=== PATIENT | female | born 1990 | race Caucasian/White ===

== ENCOUNTER → 2019-01-18 | Outpatient (CLI) | payer BC, OTHER ==
--- NOTE | 2019-01-18 15:48 | Diagnostic Imaging Report ---
INDICATION: survey. TECHNIQUE: Multiple real-time grayscale images were obtained over the gravid uterus. COMPARISON: None. FINDINGS: There is a single live fetus in a cephalic presentation. heart rate was recorded at 156 beats per minute. Placenta is fundal. Amniotic fluid volume is normal. survey demonstrates kidneys, bladder, and stomach to be unremarkable. The brain is unremarkable. There is a four-chamber heart. There is a three-vessel cord with normal insertion. The spine is unremarkable. Biometrical measurements are as follows: Biparietal 5.08 cm, age 21 weeks 3 days. Head circumference 18.84 cm, age 21 weeks 1 days. Abdominal circumference 15.18 cm, age 20 weeks 3 days. Femur length 3.32 cm, age 20 weeks 3 days. Sonographic estimate age: 20 weeks 6 days. Sonographic estimated date of delivery: 06/01/2019. Estimated Weight: 358 gm (+/- 52 gm). LMP percentile: 41%. heart rate: 156 beats per minute. number: 1 of 1. IMPRESSION: Single live IUP at 20 weeks 6 days gestational age. The estimated date of confinement sonographically is 06/01/2019. Dictated by: Dictated on workstation # [id number]
== END ==
LOC: RAD 14:38
PROVIDERS: ATTEND Obstetrics & Gynecology
DX: Z36.89 Encounter for other specified antenatal screening (principal); Z3A.20 20 weeks gestation of pregnancy
CPT/HCPCS: 76805

== ENCOUNTER 2019-05-15 10:10 | Inpatient (IN) | payer OTHER ==
[~2019-05-15] VITALS: Ht 167.6 cm; Wt 65.8 kg
[2019-05-15] VITALS (41 sets, daily range): BP systolic 111–132; BP diastolic 67–86
--- NOTE | 2019-05-15 10:10 | NUR ---
Arrived to unit from office for induction of labor. Accompanied by s.o. Wt obtained and to room 316. Gowned and urine sample obtained. to bed and oriented to room, call light and surroundings. Call light with in reach.
[2019-05-15] MEDS: D5 LR IV SOLUTION 1,000 ML IV SCH ×2 (11:49→19:51)
[2019-05-15 12:32] LABS: BASOPHILS % (AUTO) 0 % (0-10); EOSINOPHILS % (AUTO) 1 % (0-10); HEMATOCRIT 36 % (35-52); HEMOGLOBIN 12.5 G/DL (11.5-16.0); LYMPHOCYTES # (AUTO) 1.3 X 10^3 (1.0-4.0); LYMPHOCYTES % (AUTO) 19 % (12-44); MEAN CORPUSCULAR HEMOGLOBIN 30 PG (25-34); MEAN CORPUSCULAR HGB CONC 35 G/DL (32-36); MEAN CORPUSCULAR VOLUME 88 FL (80-99); MEAN PLATELET VOLUME 10.5 FL (7.4-10.4); MONOCYTES # (AUTO) 0.6 X 10^3 (0.0-1.0); MONOCYTES % (AUTO) 8 % (0-12); NEUTROPHILS # (AUTO) 5.2 X 10^3 (1.8-7.8); NEUTROPHILS % (AUTO) 73 % (42-75); PLATELET COUNT 199 10^3/uL (130-400); RED CELL DISTRIBUTION WIDTH 12.6 % (10.0-14.5); WHITE BLOOD COUNT 7.1 10^3/uL (4.3-11.0)
--- NOTE | 2019-05-15 13:02 | History & Physical-OB ---
OB - Chief Complaint & HPI Date/Time Date of Admission: Date of Admission: May 15, 2019 at 10:10 Date seen by a Provider: May 15, 2019 Time Seen by a Provider: 10:30 Chief Complaint/History OB-Reason for Admission/Chief: Onset of Labor Hx : 2 Hx Para: 1 Expected Date of Delivery: Jun 03, 2019 Gestational Age in Weeks: 37 Gestational Age in Days: 2 Indication for induction: other (Oligohydramnios, IUGR) Admission Nurse Assessment Rev: Yes History of Labs A pos Antibody neg RI RPR NR HBsAg NR HIV NR GC neg GBS neg Allergies and Home Medications Allergies Coded Allergies: Sulfa (Sulfonamide Antibiotics) (Verified Allergy, Unknown, Rash, 05/15/19) Patient Home Medication List Home Medication List Reviewed: Yes OB - History Hx of Present Care: Yes Ultrasounds: Normal mid trimester US Obstetrical Complications: None Medical Complications: None Patient Past Medical History n/a Social History/Family History Alcohol Use: Denies Use Recreational Drug Use: No Immunizations Hepatitis A: No Hepatitis B: No OB - Admission Exam Physical Exam HEENT: NCAT Heart: Rhythm Normal Lungs: Clear Abdomen: Gravid Extremities: Normal Reflexes: Normal Cervical Dilatation: 3cm Effacement: 75% Station: -1 Membranes: Intact Heart Rate: 130's Accelerations: Accelerations Present Decelerations: No Decelerations Short Term Variability: Present Loaders Variability: Average (6-25) Contractions on Admission: 6-10 Minutes Apart Labs Laboratory Tests Test 05/15/19 11:40 Range/Units White Blood Count 7.1 4.3-11.0 10^3/uL Red Blood Count 4.11 L 4.35-5.85 10^6/uL Hemoglobin 12.5 11.5-16.0 G/DL Hematocrit 36 35-52 % Mean Corpuscular Volume 88 80-99 FL Mean Corpuscular Hemoglobin 30 25-34 PG Mean Corpuscular Hemoglobin Concent 35 32-36 G/DL Red Cell Distribution Width 12.6 10.0-14.5 % Platelet Count 199 130-400 10^3/uL Mean Platelet Volume 10.5 H 7.4-10.4 FL Neutrophils (%) (Auto) 73 42-75 % Lymphocytes (%) (Auto) 19 12-44 % Monocytes (%) (Auto) 8 0-12 % Eosinophils (%) (Auto) 1 0-10 % Basophils (%) (Auto) 0 0-10 % Neutrophils # (Auto) 5.2 1.8-7.8 X 10^3 Lymphocytes # (Auto) 1.3 1.0-4.0 X 10^3 Monocytes # (Auto) 0.6 0.0-1.0 X 10^3 Eosinophils # (Auto) 0.0 0.0-0.3 10^3/uL Basophils # (Auto) 0.0 0.0-0.1 10^3/uL OB - Assessment/Plan/Diagnosis Assessment Assessment: induction of labor Admission Dx 29 yo @ 37 weeks Oligohydramnios IUGR <10th %tile GBS neg Admission Status: Inpatient Order (span 2 midnights) Reason for Inpatient Admission: Induction of labor at term Plan Plan: Induction Induction Method: JEY MIRZA DO May 15, 2019 13:02
--- NOTE | 2019-05-15 13:15 | NUR ---
Report to Raheem Washburn RN
[2019-05-15] MEDS ORDERED: CATHETER FLUSH 10 ML SYR IV SCH (14:00)
[2019-05-15] MEDS ORDERED: ACETAMINOPHEN 500 MG TAB (TYLENOL) PO PRN (14:15)
[2019-05-15] MEDS ORDERED: OXYTOCIN/NORMAL SALINE 500 ML IV SCH (16:18)
[2019-05-15] MEDS ORDERED: OXYTOCIN/NORMAL SALINE 500 ML IV ONE (16:24)
[2019-05-15] MEDS ORDERED: ONDANSETRON 4 MG/2 ML (SDV) Z0FRAN ONE (19:26)
[2019-05-15] MEDS ORDERED: ONDANSETRON 4 MG/2 ML (SDV) Z0FRAN IVP PRN (19:30)
[2019-05-15] MEDS ORDERED: LACTATED RINGERS 1,000 ML IV ONE ×3 (20:00→21:43)
[2019-05-15] MEDS ORDERED: SUFENTA 0.6MCG/ML BUPIVA 0.125 100 ML ONE (20:20)
[2019-05-15] MEDS ORDERED: BUPIVACAINE 0.25% 30 ML (SENSORCAINE) VIAL ONE (21:03)
[2019-05-15] MEDS ORDERED: fentaNYL INJECTION 100 MCG/2 ML AMP ONE (21:04)
--- NOTE | 2019-05-15 21:05 | NUR ---
2104 Kayla GIANG CRNA here for epidural placement. Procedure explained, consent reviewed and signed by anesthesia. Questions answered to patient's satisfaction. Time out taken to verify correct patient/procedure. 2108 Patient up to side of bed, assisted into sitting position. 2 Betadine prep done x3 and sterile drape applied. 2113 Local done, see anesthesia record. 2119 Test dose given, see anesthesia record for drug and dosage. Epidural catheter secured in place. Epidural placement complete. 2122 Assisted back into bed, monitors adjusted. Epidural dosed, see anesthesia record. Epidural of Sufenta/Bupvicaine @12cc/hr stated per pump. Patient tolerated procedure well.
[2019-05-15] MEDS ORDERED: ONDANSETRON 4 MG/2 ML (SDV) Z0FRAN IV PRN (21:45)
[2019-05-15] MEDS ORDERED: EPIDURAL (SUFENTA 0.6MCG/ML BUPIVA 0.125%) 100 ML BAG EPI PRN (21:45)
[2019-05-15] MEDS ORDERED: NALOXONE 0.4 MG/ML 1 ML (NARCAN) VIAL IV PRN (21:45)
[2019-05-16] VITALS (22 sets, daily range): BP systolic 99–157; BP diastolic 57–114
[2019-05-16] MEDS ORDERED: LIDOCAINE/EPI 2% 1:200,00 (XYLOCAINE) 10 ML VIAL ONE (01:42)
[2019-05-16] MEDS ORDERED: OXYTOCIN/NORMAL SALINE 500 ML IV SCH (02:39)
--- NOTE | 2019-05-16 02:44 | OB Labor & Delivery Record ---
L&D History Date of Service Date of Service: May 16, 2019 History Expected Date of Delivery: Jun 03, 2019 Gestational Age in Weeks: 37 Hx : 2 Hx Para: 1 Complications Events: Routine care Operative Indications (Cesarea: N/A-Vaginal Delivery Intrapartal Events: None L&D Stage1 Stage One Onset of Labor - Date: May 16, 2019 Monitors and Tracing Monitor Mode: External Heart Rate: 125 Monitor Accelerations: Uniform Station: 0 Cathode Ray Tube Assembler Variability: Average (6-10) Short Term Variability: Present Presentation: Vertex Vital Signs VS - Last 72 Hours, by Label 05/15/19 05/15/19 05/15/19 05/15/19 10:30 12:55 14:52 16:15 Temp 97.0 96.9 96.9 96.9 Pulse 74 82 69 81 Resp 18 18 18 18 B/P (MAP) 127/84 (98) 132/80 (97) 122/71 (88) 124/80 (95) O2 Delivery Room Air Room Air Room Air Room Air 05/15/19 05/15/19 05/15/19 05/15/19 16:35 16:50 17:05 17:20 Pulse 82 74 72 82 Resp 18 18 18 18 B/P (MAP) 117/79 (92) 121/75 (90) 117/76 (90) 122/78 (93) O2 Delivery Room Air Room Air Room Air Room Air 05/15/19 05/15/19 05/15/19 05/15/19 17:35 17:50 18:20 18:35 Temp 96.4 Pulse 84 78 87 83 Resp 18 18 18 18 B/P (MAP) 121/78 (92) 119/75 (90) 119/86 (97) 118/73 (88) O2 Delivery Room Air Room Air Room Air Room Air 05/15/19 05/15/19 05/15/19 05/15/19 18:50 19:15 19:30 19:45 Temp 96.3 Pulse 88 88 89 95 Resp 18 18 18 18 B/P (MAP) 122/81 (95) 124/71 (88) 123/85 (98) 123/86 (98) O2 Delivery Room Air Room Air Room Air Room Air 05/15/19 05/15/19 05/15/19 05/15/19 20:00 21:00 21:11 21:15 Pulse 93 75 75 86 Resp 18 18 18 18 B/P (MAP) 123/79 (94) 118/71 (87) 121/79 (93) 119/77 (91) O2 Delivery Room Air Room Air Room Air Room Air 05/15/19 05/15/19 05/15/19 05/15/19 21:17 21:20 21:23 21:26 Pulse 87 80 90 89 Resp 18 18 18 18 B/P (MAP) 130/81 (97) 117/71 (86) 120/74 (89) 120/70 (87) Pulse Ox 98 97 98 O2 Delivery Room Air Room Air Room Air Room Air 05/15/19 05/15/19 05/15/19 05/15/19 21:30 21:32 21:34 21:37 Pulse 89 90 93 72 Resp 18 18 18 18 B/P (MAP) 118/72 (87) 113/69 (84) 114/74 (87) 111/67 (82) Pulse Ox 98 98 98 O2 Delivery Room Air Room Air Room Air Room Air 05/15/19 05/15/19 05/15/19 05/15/19 21:41 21:45 21:48 21:50 Temp 96.4 Pulse 86 90 96 82 Resp 18 18 18 18 B/P (MAP) 114/70 (85) 111/81 (91) 115/81 (92) 127/69 (88) Pulse Ox 98 97 98 O2 Delivery Room Air Room Air Room Air Room Air 05/15/19 05/15/19 05/15/19 05/15/19 21:53 22:00 22:15 22:30 Pulse 76 83 80 71 Resp 18 18 18 18 B/P (MAP) 124/70 (88) 115/75 (88) 121/73 (89) 118/74 (89) Pulse Ox 97 98 98 O2 Delivery Room Air Room Air Room Air Room Air 05/15/19 05/15/19 05/15/19 05/15/19 22:45 23:00 23:15 23:30 Pulse 76 79 74 78 Resp 18 18 18 18 B/P (MAP) 116/73 (87) 117/74 (88) 119/74 (89) 117/68 (84) Pulse Ox 98 96 98 98 O2 Delivery Room Air Room Air Room Air Room Air Rupture of Membranes Spontaneous Ruture of Membrane: No Amniotic Membrane Rupture Time: 1250 Amniotic Membrane Fluid Desc.: Clear Vaginal Bleeding Description: Normal Show Induction/Anesthesia Epidural Cath Placement - Time: 2117 Progress/Notes Pitocin augmentation used to achieve adequate contraction pattern to max dose of 8 mu/min. She progressed without complication to complete and +2 station L&D Stage2 Stage Two Stage II Date: May 16, 2019 Monitors and Tracing Monitor Mode: External Heart Rate: 125 Monitor Accelerations: Uniform Monitor Decelerations: Variable Cathode Ray Tube Assembler Variability: Average (6-10) Short Term Variability: Present Position: Right Occiput Anterior Presentation: Vertex Cord Descript/Complications Cord Vessel Description: 3 Vessels Delivery Type Infant Delivery Method: Spontaneous Vaginal Anterior Shoulder: Right Episiotomy/Perineal Laceration Laceraction(s)/Extensions: Yes Episiotomy Description: Midline Degree (describe repair) midline episiotomy repaired using 3-0 vicryl in usual fashion Condition of Infant Delivery 1 minute Comment: 8 5 minute Comment: 9 Notes weight pending, infant to mothers chest skin to skin Condition of Condition of Infant: Living Exam: No Observed Abnormalities Resuscitation Resuscitation: N/A - Spontaneous Resp L&D Stage3 Stage Three Stage III Date: May 16, 2019 Pictocin Pitocin Administration mu/min: 8 Pitocin ml/hr: 8 Pitocin Administration Comment: [facility] 30 mu Placenta Delivery Placenta Delivery: Spontaneous Delivery Summary Summary Estimated blood loss (mL): 250 Attending at delivery: Jey Dunn DO Condition of Delivery Examined: Cervix Examined, Uterus Explored Post Hemorrhage: No Condition of Mother stable Condition of Infant (s) stable JEY DUNN DO May 16, 2019 02:44
[2019-05-16] MEDS ORDERED: MEASLES,MUMPS,RUBELLA 1 EA INJ SQ ONE (02:45)
[2019-05-16] MEDS ORDERED: TETANUS,DIPTH,PERTUSS P/F (BOOSTRIX) 0.5 ML VIAL IM ONE (02:45)
[2019-05-16] MEDS ORDERED: HYDROcodone/APAP 5 MG/325 MG (LORTAB) TAB PO PRN (02:45)
[2019-05-16] MEDS ORDERED: DIBUCAINE (NUPERCAINAL) 1% OINT 30 GM TOP PRN (02:45)
[2019-05-16] MEDS: WITCH HAZEL(TUCKS) 40 EA JAR TOP PRN (04:30)
[2019-05-16] MEDS: BENZOCAINE/MENTHOL (DERMOPLAST) 56 ML CAN TP PRN (04:30)
--- NOTE | 2019-05-16 04:48 | NUR ---
REFER TO LABOR FLOW SHEET.
[2019-05-16] MEDS: IBUPROFEN 600 MG (MOTRIN) TAB PO SCH ×3 (04:54→18:46)
--- NOTE | 2019-05-16 04:58 | NUR ---
PT REMAINS UP IN ROOM. TEACHING DONE RE: ROOM SURROUNDINGS, ROOM SERVICE, INFO PACKET, ETC. FRESH ICE WATER PROVIDED. ROUTINE MOTRIN GIVEN PO; SEE EMAR FOR FURTHER. PT WANTING TO TAKE A SHOWER. IV DC'D PER REQUEST. CATHETER TIP INTACT. SHOWER SET UP. S/O AT THE BEDSIDE. PT APPRECIATIVE AND DENIES ANY FURTHER NEEDS AT THIS TIME. CALL LIGHT WITHIN REACH.
[2019-05-16] MEDS ORDERED: CATHETER FLUSH 10 ML SYR IV SCH (06:00)
[2019-05-16] MEDS ORDERED: DOCUSATE CALCIUM 240 MG (SURFAK) CAP PO SCH (09:00)
[2019-05-16] MEDS: FERROUS SULF 325 MG (IRON) TAB PO SCH (10:00)
[2019-05-16] MEDS: DOCUSATE SODIUM 100 MG (COLACE) CAP PO SCH (10:00)
[2019-05-16] MEDS: PRENATAL VITAMIN 1 EA TAB PO SCH (10:00)
[2019-05-16] MEDS ORDERED: DOCU100C37 PO (19:29)
[2019-05-16] MEDS ORDERED: ACHD5005 PO (19:29)
[2019-05-16] MEDS ORDERED: IBUP-844 PO (19:29)
[2019-05-16] MEDS ORDERED: Benzocaine/Menthol TP (19:29)
[2019-05-16] MEDS ORDERED: DIBU30OI TOP (19:29)
--- NOTE | 2019-05-16 19:34 | Discharge Inst-Women's Service ---
Discharge Inst-Women's Serv Depart Medication/Instructions New, Converted or Re-Newed RX: RX on Chart Final Diagnosis PPD 1 NVD Consults/Follow Up Additional Follow Up: Yes Orders/Referrals Dr. Dunn in 6 weeks Activity Activity: Activity as Tolerated Driving Instructions: No Driving for 1 Week NO SMOKING: NO SMOKING Nothing Inside Vagina: No Douching, No Beaman, No Tampons Diet Discharge Diet: No Restrictions Symptoms to Report to : Bleeding Excessive, Pain Increased, Fever Over 101 Degrees F, Vaginal Bleeding Increase, Questions/Concerns For Any Problems or Questions: Contact Your Physician JEY DUNN DO May 16, 2019 7:34 pm
[2019-05-17 00:27] VITALS: BP 119/73
[2019-05-17] MEDS: DOCUSATE SODIUM 100 MG (COLACE) CAP PO SCH ×2 (00:27→08:10)
[2019-05-17] MEDS: IBUPROFEN 600 MG (MOTRIN) TAB PO SCH ×3 (00:27→11:59)
[2019-05-17 05:35] LABS: BASOPHILS % (AUTO) 0 % (0-10); EOSINOPHILS # (AUTO) 0.2 10^3/uL (0.0-0.3); EOSINOPHILS % (AUTO) 2 % (0-10); HEMATOCRIT 36 % (35-52); HEMOGLOBIN 11.9 G/DL (11.5-16.0); LYMPHOCYTES % (AUTO) 25 % (12-44); MEAN CORPUSCULAR HEMOGLOBIN 30 PG (25-34); MEAN CORPUSCULAR HGB CONC 34 G/DL (32-36); MEAN CORPUSCULAR VOLUME 90 FL (80-99); MEAN PLATELET VOLUME 10.2 FL (7.4-10.4); MONOCYTES # (AUTO) 0.7 X 10^3 (0.0-1.0); MONOCYTES % (AUTO) 8 % (0-12); NEUTROPHILS # (AUTO) 5.1 X 10^3 (1.8-7.8); NEUTROPHILS % (AUTO) 65 % (42-75); PLATELET COUNT 175 10^3/uL (130-400); WHITE BLOOD COUNT 7.9 10^3/uL (4.3-11.0)
[2019-05-17 06:16] VITALS: BP 111/67
--- NOTE | 2019-05-17 07:30 | Postpartum Progress Note ---
Note Note Day # 1 Subjective: Patient is without complaints. Ambulating, voiding. Tolerating a regular diet without nausea or vomiting. Normal lochia. Pain is well controlled with oral pain medications. Objective: Physical Exam: General - Alert and oriented, no apparent distress Abdomen - Soft, appropriately tender to palpation, non-distended, fundus firm at umbilicus Extremities - no edema, negative Dereje's bilaterally Assessment: PPD 1 NVD Plan: Routine care. Encourage breast feeding. Encourage ambulation. Ferrous sulfate supplementation. Plan for discharge today Vitals - Labs Vital Signs - I&O Vital Signs Date Time Temp Pulse Resp B/P (MAP) Pulse Ox O2 Delivery O2 Flow Rate FiO2 05/17/19 06:16 98.3 65 16 111/67 (82) 98 Room Air 05/17/19 00:27 98.8 87 16 119/73 (88) 98 Room Air 05/16/19 19:55 98.1 79 16 125/82 (96) 97 Room Air 05/16/19 17:10 99.4 78 16 119/79 (92) 97 Room Air 05/16/19 12:00 98.3 68 15 99/57 (71) 96 Room Air 05/16/19 08:00 97.6 65 18 111/65 (80) Room Air Labs Laboratory Tests 05/17/19 05:15: White Blood Count 7.9, Red Blood Count 3.93L, Hemoglobin 11.9, Hematocrit 36, Mean Corpuscular Volume 90, Mean Corpuscular Hemoglobin 30, Mean Corpuscular Hem oglobin Concent 34, Red Cell Distribution Width 13.0, Platelet Count 175, Mean Platelet Volume 10.2, Neutrophils (%) (Auto) 65, Lymphocytes (%) (Auto) 25, Monocytes (%) (Auto) 8, Eosinophils (%) (Auto) 2, Basophils (%) (Auto) 0, Neutrophils # (Auto) 5.1, Lymphocytes # (Auto) 2.0, Monocytes # (Auto) 0.7, Eosinophils # (Auto) 0.2, Basophils # (Auto) 0.0 JEY DUNN DO May 17, 2019 07:30
[2019-05-17] MEDS: FERROUS SULF 325 MG (IRON) TAB PO SCH (08:10)
[2019-05-17] MEDS: PRENATAL VITAMIN 1 EA TAB PO SCH (08:10)
--- NOTE | 2019-05-17 10:15 | NUR ---
Dr Gonzalez here to see pt. D/C orders rec'd.
[2019-05-17] MEDS: WITCH HAZEL(TUCKS) 40 EA JAR TOP PRN (12:15)
[2019-05-17] MEDS: BENZOCAINE/MENTHOL (DERMOPLAST) 56 ML CAN TP PRN (12:15)
--- NOTE | 2019-05-17 12:15 | NUR ---
Discharge instructions explained to pt with copy provided to pt. Prescriptions given and explained to pt. Pt notified of follow up appt. Pt verbalizes understanding of instructions, denies needs or concerns. Extra dermoplast, tucks, pads provided per pt request. Questions answered to pt satisfaction. Encouraged pt to call when ready for dismissal.
--- NOTE | 2019-05-17 12:35 | NUR ---
Pt ambulates off unit accompanied by S.O., , and staff member to private vehicle with all personal belongings. No s/s of distress noted.
--- NOTE | 2019-05-17 14:43 | Anesthesia-Regional Post-Op ---
Regional Patient Condition Mental Status: Alert, Oriented x3 Circulation: Same as Pre-Op Headache: Absent Sensation: Full Recovery Motor Block: Absent Post Op Complications Complications None Follow Up Care/Instructions Patient Instructions None needed. Anesthesia/Patient Condition Patient is already discharged to home. Nursing staff said she was doing great this morning and had no anesthetic complications. I attempted to call pt at 1440 on 05-17-19 and left a message. Will be available if needed but no follow up is necessary. WERNER ZAMORANO DO May 17, 2019 14:43
== END 2019-05-17 12:35 | disposition home or self-care (01) | DRG 807 ==
LOC: LDRP 10:10
PROVIDERS: ADMIT Obstetrics & Gynecology; ATTEND Obstetrics & Gynecology
PROC: 10E0XZZ Delivery of Products of Conception, External Approach (ICD-10-PCS; principal; 2019-05-16)
PROC: 0W8NXZZ Division of Female Perineum, External Approach (ICD-10-PCS; 2019-05-16)
DX: O41.03X0 Oligohydramnios, third trimester, not applicable or unspecified (principal); O36.5930 Maternal care for other known or suspected poor fetal growth, third trimester, not applicable or unspecified; Z3A.37 37 weeks gestation of pregnancy; Z37.0 Single live birth
CPT/HCPCS: 36415; 85025; 86850; 86900; 86901

== ENCOUNTER 2020-04-17 13:10 | Outpatient (RCR) | payer OTHER ==
[~2020-04-17 13:10] MED LIST: ACHD5005 PO; Benzocaine/Menthol TP; DIBU30OI TOP; DOCU100C37 PO; IBUP-844 PO
== END 2020-06-18 14:13 | disposition home or self-care (01) ==
PROVIDERS: ATTEND Physical Therapist
DX: R07.81 Pleurodynia (principal)

== ENCOUNTER 2020-07-15 10:22 | Emergency (ER) | payer OTHER ==
[~2020-07-15] VITALS: Ht 170.1 cm; Wt 60.3 kg
[2020-07-15] MEDS ORDERED: LACTATED RINGERS 1,000 ML IV ONE (10:28)
[2020-07-15] MEDS ORDERED: ONDANSETRON 4 MG/2 ML (SDV) Z0FRAN IVP ONE (10:30)
[2020-07-15 11:02] LABS: BASOPHILS % (AUTO) 0 % (0-10); EOSINOPHILS # (AUTO) 0.1 10^3/uL (0.0-0.3); EOSINOPHILS % (AUTO) 2 % (0-10); HEMATOCRIT 39 % (35-52); HEMOGLOBIN 13.4 G/DL (11.5-16.0); LYMPHOCYTES # (AUTO) 0.5 X 10^3 (1.0-4.0); LYMPHOCYTES % (AUTO) 8 % (12-44); MEAN CORPUSCULAR HEMOGLOBIN 30 PG (25-34); MEAN CORPUSCULAR HGB CONC 34 G/DL (32-36); MEAN CORPUSCULAR VOLUME 86 FL (80-99); MEAN PLATELET VOLUME 9.9 FL (7.4-10.4); MONOCYTES # (AUTO) 0.4 X 10^3 (0.0-1.0); MONOCYTES % (AUTO) 6 % (0-12); NEUTROPHILS # (AUTO) 5.3 X 10^3 (1.8-7.8); NEUTROPHILS % (AUTO) 84 % (42-75); PLATELET COUNT 203 10^3/uL (130-400); RED CELL DISTRIBUTION WIDTH 12.7 % (10.0-14.5); WHITE BLOOD COUNT 6.2 10^3/uL (4.3-11.0)
[2020-07-15 11:10] LABS: ALBUMIN 4.3 GM/DL (3.2-4.5); CHLORIDE 108 MMOL/L (98-107); POTASSIUM 4.1 MMOL/L (3.6-5.0); SODIUM 138 MMOL/L (135-145)
[2020-07-15 11:11] LABS: CALCIUM 8.6 MG/DL (8.5-10.1)
[2020-07-15 11:12] LABS: GLUCOSE 106 MG/DL (70-105); TOTAL PROTEIN 6.8 GM/DL (6.4-8.2)
[2020-07-15 11:13] LABS: CARBON DIOXIDE 21 MMOL/L (21-32)
[2020-07-15 11:14] LABS: BILIRUBIN,TOTAL 0.3 MG/DL (0.1-1.0)
[2020-07-15 11:16] LABS: ALKALINE PHOSPHATASE 67 U/L (40-136); CREATININE SERUM 0.76 MG/DL (0.60-1.30); GFR ESTIMATED > 60
[2020-07-15 11:17] LABS: BUN/CREATININE RATIO 21
[2020-07-15 11:19] LABS: ALANINE AMINOTRANSFERASE 20 U/L (0-55); MAGNESIUM 1.8 MG/DL (1.6-2.4)
--- OUTSIDE RECORDS SUMMARY | 2020-07-15 11:30 | XMS REPORT | Continuity of Care Document ---
Author Author [facility] Organization [facility] Address Unknown Phone Unavailable Allergies Active Description Code Type Severity Reaction Onset Reported/Identified Relationship to Patient Clinical Status Yes Sulfa (Sulfonamide Antibiotics) [id number] 0491 Drug Allergy Unknown Rash 019 Medications There is no data. 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 Ot 780.2 SYNC OPE AND COLLAPSE 03/25/2016 Ot 785.1 PALP ITATIONS 10/18/2016 DAVE DONG Ot 626.0 ABSENCE OF MENSTRUATION 10/18/2016 DAVE DONG Ot 626.0 ABSENCE OF MENSTRUATION 12/12/2018 DAVE DONG Ot 626.0 ABSENCE OF MENSTRUATION 02/01/2019 JEY DUNN DO Ot Z36.89 ENCOUNTER FOR OTHER SPECIFIED 02/01/2019 JEY DUNN DO Ot Z3A.20 20 WEEKS GESTATION OF 05/17/2019 JEY DUNN DO Ot O36.5930 MATERN CARE FOR OTH OR SUSP POOR FETL GR 05/17/2019 JEY DUNN DO Ot O41.03X0 OLIGOHYDRAMNIOS, THIRD TRIMESTER, NOT AP 05/17/2019 JEY DUNN DO Ot Z37.0 SINGLE LIVE 05/17/2019 JEY DUNN DO Ot Z3A.37 37 WEEKS GESTATION OF 04/23/2020 DANIEL PINO PT Ot R07.81 PLEURODYNIA 05/16/2020 DANIEL PINO PT Ot R07.81 PLEURODYNIA Procedures Code Description Performed By Per andrew On 5L4DSVO DI VISION OF FEMALE PERINEUM, EXTERNAL AP 05/16/2019 [id number] DE LIVERY OF PRODUCTS OF CONCEPTION, EXTE 05/16/2019 Results Test Result Range Complete blood count (CBC) with automate d white blood cell (WBC) differential - 05/15/19 11:40 Blood leukocytes automated count (number/volume) 7.1 10*3/uL 4.3-11.0 Blood erythrocytes automated count (number/volume) 4.11 10*6/uL 4.35-5.85 Venous blood hemoglobin measurement (mass/volume) 12.5 g/dL 11.5-16.0 Blood hematocrit (volume fraction) 36 % 35-52 Automated erythrocyte mean corpuscular volume 88 [ foz_us] 80-99 Automated erythrocyte mean corpuscular h emoglobin (mass per erythrocyte) 30 pg 25-34 Automated erythrocyte mean corpuscular h emoglobin concentration measurement (mass/volume) 35 g/dL 32-36 Automated erythrocyte distribution width ratio 12. 6 % 10.0- 14.5 Automated blood platelet count (count/volume) 199 10*3/uL 130-400 Automated blood platelet mean volume measurement 10.5 [foz_us] 7.4-10.4 Automated blood neutrophils/100 leukocytes 73 % 42-75 Automated blood lymphocytes/100 leukocytes 19 % 12-44 Blood monocytes/100 leukocytes 8 % 0-12 Automated blood eosinophils/100 leukocytes 1 % 0-10 Automated blood basophils/100 leukocytes 0 % 0-10 Blood neutrophils automated count (number/volume) 5.2 10*3 1.8-7.8 Blood lymphocytes automated count (number/volume) 1.3 10*3 1.0-4.0 Blood monocytes automated count (number/volume) 0. 6 10*3 0.0-1.0 Automated eosinophil count 0.0 10*3/uL 0 .0-0.3 Automated blood basophil count (count/volume) 0.0 10*3/uL 0.0-0.1 Blood type T Indirect antibody screen pa chance - 05/15/19 11:40 WRISTBAND NUMBER [id number] NRG ABO+Rh group AP NRG Blood group antibody screen NEGATIVE NR G Complete blood count (CBC) with automate d white blood cell (WBC) differential - 05/17/19 05:15 Blood leukocytes automated count (number/volume) 7.9 10*3/uL 4.3-11.0 Blood erythrocytes automated count (number/volume) 3.93 10*6/uL 4.35-5.85 Venous blood hemoglobin measurement (mass/volume) 11.9 g/dL 11.5-16.0 Blood hematocrit (volume fraction) 36 % 35-52 Automated erythrocyte mean corpuscular volume 90 [ foz_us] 80-99 Automated erythrocyte mean corpuscular h emoglobin (mass per erythrocyte) 30 pg 25-34 Automated erythrocyte mean corpuscular h emoglobin concentration measurement (mass/volume) 34 g/dL 32-36 Automated erythrocyte distribution width ratio 13. 0 % 10.0- 14.5 Automated blood platelet count (count/volume) 175 10*3/uL 130-400 Automated blood platelet mean volume measurement 10.2 [foz_us] 7.4-10.4 Automated blood neutrophils/100 leukocytes 65 % 42-75 Automated blood lymphocytes/100 leukocytes 25 % 12-44 Blood monocytes/100 leukocytes 8 % 0-12 Automated blood eosinophils/100 leukocytes 2 % 0-10 Automated blood basophils/100 leukocytes 0 % 0-10 Blood neutrophils automated count (number/volume) 5.1 10*3 1.8-7.8 Blood lymphocytes automated count (number/volume) 2.0 10*3 1.0-4.0 Blood monocytes automated count (number/volume) 0. 7 10*3 0.0-1.0 Automated eosinophil count 0.2 10*3/uL 0 .0-0.3 Automated blood basophil count (count/volume) 0.0 10*3/uL 0.0-0.1 Encounters ACCT No. Visit Date/Time Discharge Status Pt. Type Provider Facility Loc./Unit Complaint [id number] 04/17/2020 13:10:00 020 14:13:00 DIS Outpatient DANIEL PINO PT [facility] REHAB L RIB PAIN [id number] 05/15/2019 10:10:00 019 12:35:00 DIS Inpatient JEY DUNN DO [facility] LDRP INDUCTION FOR OLIGO [id number] 01/18/2019 14:38:00 019 23:59:59 CLS Outpatient JEY DUNN DO [facility] RAD [id number] 07/11/2013 14:17:00 013 23:59:59 CLS Outpatient DAVE DONG [facility] RAD AMENORRHEA [id number] 06/16/2011 10:53:00 Document Registration [id number] 06/14/2011 11:06:00 Document Registration
[2020-07-15 11:49] LABS: BAND NEUTROPHILS 3 %; BASOPHILS % (MANUAL) 0 %; EOSINOPHILS % (MANUAL) 1 %; LYMPHOCYTES % (MANUAL) 9 %; MONOCYTES % (MANUAL) 2 %; NEUTROPHILS % (MANUAL) 85 %; RBC MORPH NORMAL
[2020-07-15] MEDS ORDERED: KETOROLAC 30 MG/ML VIAL IVP ONE (12:00)
--- NOTE | 2020-07-15 12:01 | NUR ---
Pt reports Dr. Guajardo had offered pain medication; pt delined. Pt reports headache has worsened and is now requesting pain medication. Dr. Guajardo notified.
[2020-07-15 13:03] LABS: BILIRUBIN,URINE NEGATIVE (NEGATIVE); CLARITY,URINE SL CLOUDY; COLOR,URINE YELLOW; GLUCOSE, URINE (UA) NEGATIVE (NEGATIVE); KETONES,URINE 1+ (NEGATIVE); LEUKOCYTE ESTERASE ,URINE NEGATIVE (NEGATIVE); NITRITE,URINE NEGATIVE (NEGATIVE); PROTEIN,URINE NEGATIVE (NEGATIVE)
[2020-07-15 13:11] LABS: RBC,URINE 0-2 /HPF
[2020-07-15 13:12] LABS: BACTERIA,URINE TRACE /HPF
--- NOTE | 2020-07-15 13:51 | NUR ---
Pt on phone. Pt reports feeling better at this time.
[2020-07-15] MEDS ORDERED: fentaNYL INJECTION 100 MCG/2 ML AMP IVP ONE (14:00)
[2020-07-15] MEDS ORDERED: ONDA4TAB11 SL (14:29)
--- NOTE | 2020-07-15 14:30 | ED General ---
General Chief Complaint: Dizziness/Syncope Stated Complaint: NAUSEA/VOMITING;SYNCOPE Nursing Triage Note: Pt c/o allergies for a couple days. Pt reports having diarrhea and vomiting that began this morning. Pt reports having a syncopal episode while vomiting. Pt hit R side of head. Pt reports calling Dr. Josh Anne and was told to come to ED. Nursing Sepsis Screen: No Definite Risk Source of Information: Patient Exam Limitations: No Limitations History of Present Illness Date Seen by Provider: Jul 15, 2020 Time Seen by Provider: 10:20 Initial Comments This 30-year-old woman presents to the emergency room with primary complaint of nausea, vomiting, diarrhea, and headache. She reports the whole family has been struggling with some allergies recently. Then she developed the GI symptoms and headache today. She had a syncopal episode a while vomiting and hit the right forehead on the toilet, wall, or floor. She reports having episodes of vomiting with her migraine headaches and has had multiple syncopal episodes during vomiting in the past. She called Dr. Anne's office and he directed her to the ER primarily because of the head injury. She denies any notable cough, shortness of breath, or fever for her or any members of the family. Allergies and Home Medications Allergies Coded Allergies: Sulfa (Sulfonamide Antibiotics) (Verified Allergy, Unknown, Rash, 05/15/19) Home Medications Dibucaine 30 Gm Oint, 0 GM TOP UD PRN for PAIN- SEE INSTRUCTIONS Prescribed by: JEY DUNN on 05/16/191928 Docusate Sodium 100 Mg Capsule, 100 MG PO BID PRN for CONSTIPATION-1ST LINE Prescribed by: JEY DUNN on 05/16/191928 Hydrocodone Bit/Acetaminophen 1 Tab Tab, 1 TAB PO Q4H PRN for PAIN-MODERATE Prescribed by: JEY DUNN on 05/16/191928 Ibuprofen 600 Mg Tablet, 600 MG PO Q6HR Prescribed by: JEY DUNN on 05/16/191928 Ondansetron 4 Mg Tab.rapdis, 4 MG SL Q4H PRN for NAUSEA/VOMITING Prescribed by: LEA BAUTISTA on 07/15/20 142 [Benzocaine/Menthol] 56 ML AEROSOL, 56 ML TP UD PRN for PAIN- SEE INSTRUCTIONS EXTERNAL USE ONLY Prescribed by: JEY DUNN on 05/16/191928 Patient Home Medication List Home Medication List Reviewed: Yes Review of Systems Review of Systems Constitutional: no symptoms reported EENTM: see HPI Respiratory: no symptoms reported Cardiovascular: no symptoms reported Gastrointestinal: see HPI Genitourinary: no symptoms reported : No Musculoskeletal: no symptoms reported Skin: no symptoms reported Psychiatric/Neurological: No Symptoms Reported Hematologic/Lymphatic: No Symptoms Reported Immunological/Allergic: no symptoms reported Past Mizfnij-Fihovr-Bzbpth Hx Past Med/Social Hx: Reviewed Nursing Past Med/Soc Hx Patient Social History Alcohol Use: Denies Use Recreational Drug Use: No 2nd Hand Smoke Exposure: No Recent Foreign Travel: No Contact w/Someone Who Travel: No Recent Infectious Disease Expo: No Recent Hopitalizations: No Immunizations Up To Date PED Vaccines UTD: Yes Past Medical History Surgeries: No Respiratory: No Cardiac: Yes Syncope (Associated with migraine-induced vomiting) Neurological: Yes Headaches /Migraines Last Menstrual Period: Jul 13, 2020 Genitourinary: No Gastrointestinal: No Musculoskeletal: No Endocrine: No HEENT: No Cancer: No Psychosocial: No Integumentary: No Blood Disorders: No Physical Exam Vital Signs Vital Signs - First Documented 07/15/20 10:35 Temp 36.7 Pulse 84 Resp 20 B/P (MAP) 118/73 (88) Pulse Ox 99 O2 Delivery Room Air Capillary Refill : Less Than 3 Seconds Height, Weight, BMI Height: 5'6.00" Weight: 145lbs. 0.0oz. 65.999348zi; 20.00 BMI Method: General Appearance: No Apparent Distress, WD/WN HEENT: PERRL/EOMI, Pharynx Normal, Other (Small contusion with mild tenderness on the right forehead) Neck: Normal Inspection, Non Tender Respiratory: Lungs Clear, Normal Breath Sounds, No Accessory Muscle Use, No Respiratory Distress Cardiovascular: Regular Rate, Rhythm, No Edema, No Murmur Gastrointestinal: Normal Bowel Sounds, Non Tender, Soft Extremity: Normal Inspection, Non Tender, No Pedal Edema Neurologic/Psychiatric: Alert, Oriented x3, No Motor/Sensory Deficits, Normal Mood/Affect, sleeve setter safety stitch II-XII Norm as Tested Skin: Normal Color, Warm/Dry Progress/Results/Core Measures Suspected Sepsis Recent Fever Within 48 Hours: No Infection Criteria Present: None New/Unexplained Altered Menta: No Sepsis Screen: No Definite Risk SIRS Temperature: Pulse: 84 Respiratory Rate: 20 Laboratory Tests 07/15/20 10:50: White Blood Count 6.2 Blood Pressure 118 /73 Mean: 88 Laboratory Tests 07/15/20 10:50: Creatinine 0.76, Platelet Count 203, Total Bilirubin 0.3 Results/Orders Lab Results Laboratory Tests Test 07/15/20 10:50 07/15/20 12:56 Range/Units White Blood Count 6.2 4.3-11.0 10^3/uL Red Blood Count 4.55 4.35-5.85 10^6/uL Hemoglobin 13.4 11.5-16.0 G/DL Hematocrit 39 35-52 % Mean Corpuscular Volume 86 80-99 FL Mean Corpuscular Hemoglobin 30 25-34 PG Mean Corpuscular Hemoglobin Concent 34 32-36 G/DL Red Cell Distribution Width 12.7 10.0-14.5 % Platelet Count 203 130-400 10^3/uL Mean Platelet Volume 9.9 7.4-10.4 FL Neutrophils (%) (Auto) 84 H 42-75 % Lymphocytes (%) (Auto) 8 L 12-44 % Monocytes (%) (Auto) 6 0-12 % Eosinophils (%) (Auto) 2 0-10 % Basophils (%) (Auto) 0 0-10 % Neutrophils # (Auto) 5.3 1.8-7.8 X 10^3 Lymphocytes # (Auto) 0.5 L 1.0-4.0 X 10^3 Monocytes # (Auto) 0.4 0.0-1.0 X 10^3 Eosinophils # (Auto) 0.1 0.0-0.3 10^3/uL Basophils # (Auto) 0.0 0.0-0.1 10^3/uL Neutrophils % (Manual) 85 % Lymphocytes % (Manual) 9 % Monocytes % (Manual) 2 % Eosinophils % (Manual) 1 % Basophils % (Manual) 0 % Band Neutrophils 3 % Blood Morphology Comment NORMAL Sodium Level 138 135-145 MMOL/L Potassium Level 4.1 3.6-5.0 MMOL/L Chloride Level 108 H 98-107 MMOL/L Carbon Dioxide Level 21 21-32 MMOL/L Anion Gap 9 5-14 MMOL/L Blood Urea Nitrogen 16 7-18 MG/DL Creatinine 0.76 0.60-1.30 MG/DL Estimat Glomerular Filtration Rate > 60 BUN/Creatinine Ratio 21 Glucose Level 106 H 70-105 MG/DL Calcium Level 8.6 8.5-10.1 MG/DL Corrected Calcium 8.4 L 8.5-10.1 MG/DL Magnesium Level 1.8 1.6-2.4 MG/DL Total Bilirubin 0.3 0.1-1.0 MG/DL Aspartate Amino Transf (AST/SGOT) 17 5-34 U/L Alanine Aminotransferase (ALT/SGPT) 20 0-55 U/L Alkaline Phosphatase 67 40-136 U/L Total Protein 6.8 6.4-8.2 GM/DL Albumin 4.3 3.2-4.5 GM/DL Serum Test, Qualitative NEGATIVE NEGATIVE Urine Color YELLOW Urine Clarity SL CLOUDY Urine pH 6.0 5-9 Urine Specific Irene 1.025 H 1.016-1.022 Urine Protein NEGATIVE NEGATIVE Urine Glucose (UA) NEGATIVE NEGATIVE Urine Ketones 1+ H NEGATIVE Urine Nitrite NEGATIVE NEGATIVE Urine Bilirubin NEGATIVE NEGATIVE Urine Urobilinogen 0.2 < = 1.0 MG/DL Urine Leukocyte Esterase NEGATIVE NEGATIVE Urine RBC (Auto) 2+ H NEGATIVE Urine RBC 0-2 /HPF Urine WBC NONE /HPF Urine Squamous Epithelial Cells 2-5 /HPF Urine Crystals NONE /LPF Urine Bacteria TRACE /HPF Urine Casts NONE /LPF Urine Mucus NEGATIVE /LPF Urine Culture Indicated NO My Orders Orders - LEA CORBIN MD Cbc With Automated Diff (07/15/20 10:28) Comprehensive Metabolic Panel (07/15/20 10:28) Hcg,Qualitative Serum (07/15/20 10:28) Magnesium (07/15/20 10:28) Ua Culture If Indicated (07/15/20 10:28) Lactated Ringers (Lr 1000 Ml Iv Solution (07/15/20 10:28) Ondansetron Injection (Zofran Injectio (07/15/20 10:30) Manual Differential (07/15/20 10:50) Ketorolac Injection (Toradol Injection) (07/15/20 12:00) Fentanyl Injection (Sublimaze Injection (07/15/20 14:00) Medications Given in ED Current Medications Medications Dose Ordered Sig/Mari Route Start Time Stop Time Status Last Admin Dose Admin Ketorolac Tromethamine 15 mg ONCE ONCE IVP 07/15/20 12:00 07/15/20 12:01 DC 8/18/20 12:09 15 MG Lactated Ringer's 1,000 ml @ 0 mls/hr Q0M ONCE IV 07/15/20 10:28 07/15/20 10:30 DC 07/15/20 10:53 1,000 MLS/HR Ondansetron HCl 8 mg ONCE ONCE IVP 07/15/20 10:30 07/15/20 10:31 DC 07/15/20 10:52 8 MG Vital Signs/I&O 07/15/20 07/15/20 10:35 14:37 Temp 36.7 36.7 Pulse 84 79 Resp 20 20 B/P (MAP) 118/73 (88) 117/66 (88) Pulse Ox 99 99 O2 Delivery Room Air Room Air Capillary Refill : Less Than 3 Seconds Blood Pressure Mean: 88 Progress Note : Progress Note Labs were unremarkable. Patient was treated with a liter of IV fluid and Zofran. She was later given Toradol for headache. She was stable and dismissed home. Departure Impression Primary Impression: Nausea vomiting and diarrhea Additional Impressions: Acute headache Qualified Codes: R51 - Headache Syncope Contusion of forehead Disposition: HOME, SELF-CARE Condition: Improved Departure-Patient Inst. Decision time for Depature: 14:27 Referrals: SELF,PATIENT REFERRAL (PCP) Primary Care Physician Patient Instructions: Viral Gastroenteritis Add. Discharge Instructions: Start with a clear liquid diet and gradually advance your diet with small quantities of bland food as tolerated. Avoid dairy products or fatty or greasy foods until your symptoms have resolved for about 48 hours. You may use Tylenol for primary pain control. For headaches, you may add ibuprofen up to 400 mg every 6 hours as needed. Use Zofran (ondansetron) as prescribed for nausea and vomiting. Return to care if you have worsening symptoms or if symptoms are not improving as expected. All discharge instructions reviewed with patient and/or family. Voiced understanding. Scripts Ondansetron (Ondansetron Odt) 4 Mg Tab.rapdis 4 MG SL Q4H PRN for NAUSEA/VOMITING, #10 TAB Prov: LEA CORBIN MD 07/15/20 Copy Copies To 1: JOSH ANNE MD, JOSHUA T MD Jul 15, 2020 14:30
[2020-07-15 14:37] VITALS: BP 117/66
== END 2020-07-15 14:40 | disposition home or self-care (01) ==
LOC: EDUNIT# 10:22 → ER 10:23
DX: S00.83XA Contusion of other part of head, initial encounter (principal); R55 Syncope and collapse; R51 Headache; R11.2 Nausea with vomiting, unspecified; R19.7 Diarrhea, unspecified; Z88.2 Allergy status to sulfonamides; W22.8XXA Striking against or struck by other objects, initial encounter
CPT/HCPCS: 36415; 80053; 81000; 83735; 84703; 85007; 85027

== ENCOUNTER → 2022-03-19 | Outpatient (CLI) | payer OTHER ==
[~2022-03-19] MED LIST changes: +ONDA4TAB11 SL
--- NOTE | 2022-03-19 15:11 | Diagnostic Imaging Report ---
INDICATION: Followup of low-lying placenta. TECHNIQUE: Multiple real-time grayscale images were obtained over the gravid uterus. COMPARISON: None FINDINGS: Placenta is anterior. Placenta does abut the cervical os. This does not appear to extend across the cervical os. Cervical length is 6 cm. Fetus is currently transverse head to maternal right. Amniotic fluid index appears normal. heart rate of 152. anatomical survey is normal with structures visualized including kidneys, bladder, stomach, ventricles and brain, four-chamber heart, three-vessel cord spine and cord insertion. The maternal adnexa appears normal. Biometrical measurements are as follows: Biparietal 4.61 cm, age 20 weeks 0 days. Head circumference 18.26 cm, age 20 weeks 5 days. Abdominal circumference 15.23 cm, age 20 weeks 4 days. Femur length 3.58 cm, age 21 weeks 3 days. Sonographic estimate age: 20 weeks 5 days. Sonographic estimated date of delivery: 08/01/2022. Estimated Weight: 378 gm (+/- 55 gm). LMP percentile: 74%. heart rate: 152 beats per minute. number: 1 of 1. IMPRESSION: There is a 20 week 5 day live intrauterine by current biometric measurements. No abnormalities were demonstrated. There is noted marginal previa with placenta anterior and extending to the cervical os. Dictated by: Dictated on workstation # [id number]
== END ==
LOC: RAD 12:00
PROVIDERS: ATTEND Obstetrics & Gynecology
DX: Z34.02 Encounter for supervision of normal first pregnancy, second trimester (principal); Z3A.20 20 weeks gestation of pregnancy
CPT/HCPCS: 76805

== ENCOUNTER 2022-07-19 09:12 | Inpatient (IN) | payer OTHER ==
[~2022-07-19] VITALS: Ht 167.5 cm; Wt 67.3 kg
[2022-07-19] VITALS (52 sets, daily range): BP systolic 106–136; BP diastolic 66–87
[2022-07-19] MEDS ORDERED: MINERAL OIL 30 ML UDC TOP PRN (09:30)
--- NOTE | 2022-07-19 09:48 | History & Physical-OB ---
OB - Chief Complaint & HPI Date/Time Date of Admission: Date of Admission: Jul 19, 2022 at 09:12 Date seen by a Provider: Jul 19, 2022 Time Seen by a Provider: 09:45 Chief Complaint/History OB-Reason for Admission/Chief: Induction of Labor Hx : 3 Hx Para: 2 Expected Date of Delivery: Aug 05, 2022 Gestational Age in Weeks: 37 Gestational Age in Days: 4 Indication for induction: medical complication Other reason for admission: IUGR <10-%tile Oligohydramnios Admission Nurse Assessment Rev: Yes History of Labs GBS neg Allergies and Home Medications Allergies Coded Allergies: Sulfa (Sulfonamide Antibiotics) (Verified Allergy, Unknown, Rash, 05/15/19) Patient Home Medication List Home Medication List Reviewed: Yes Dibucaine (Dibucaine) 30 Gm Oint, 0 GM TOP UD PRN for PAIN- SEE INSTRUCTIONS Prescribed by: JEY DUNN on 05/16/191928 Docusate Sodium (Docusate Sodium) 100 Mg Capsule, 100 MG PO BID PRN for CONSTIPATION-1ST LINE Prescribed by: JEY DUNN on 05/16/191928 Hydrocodone Bit/Acetaminophen (Lortab 5 Mg Tablet) 1 Tab Tab, 1 TAB PO Q4H PRN for PAIN-MODERATE Prescribed by: EJY DUNN on 05/16/191928 Ibuprofen (Ibu) 600 Mg Tablet, 600 MG PO Q6HR Prescribed by: JEY DUNN on 05/16/191928 Ondansetron (Ondansetron Odt) 4 Mg Tab.rapdis, 4 MG SL Q4H PRN for NAUSEA/VOMITING Prescribed by: LEA BAUTISTA on 07/15/20 1429 [Benzocaine/Menthol] 56 ML AEROSOL, 56 ML TP UD PRN for PAIN- SEE INSTRUCTIONS Prescribed by: JEY DUNN on 05/16/191928 OB - History Hx of Present Care: Yes Ultrasounds: Abnormal US findings (Oligohydramnios, IUGR) Obstetrical Complications: Growth Restriction Medical Complications: None Patient Past Medical History n/a Social History/Family History 2nd Hand Smoke Exposure: No Immunizations Hepatitis A: No Hepatitis B: No OB - Admission Exam Physical Exam HEENT: NCAT Heart: Rhythm Normal Lungs: Clear Abdomen: Gravid Extremities: Normal Reflexes: Normal Cervical Dilatation: 3cm Effacement: 75% Station: -1 Membranes: Intact Heart Rate: 130's Accelerations: Accelerations Present Decelerations: No Decelerations Short Term Variability: Present Litigation Legal Assistant Variability: Average (6-25) Contractions on Admission: 6-10 Minutes Apart Intensity: Mild OB - Assessment/Plan/Diagnosis Assessment Assessment: induction of labor Admission Dx 32 yo @ 37.4 IUGR <10th%tile Oligohydramnios GBS neg Admission Status: Inpatient Order (span 2 midnights) Reason for Inpatient Admission: IOL 37 weeks Plan Plan: Induction JEY DUNN DO Jul 19, 2022 09:48
[2022-07-19 10:12] LABS: BASOPHILS % (AUTO) 0 % (0-10); EOSINOPHILS % (AUTO) 1 % (0-10); HEMATOCRIT 37 % (35-52); HEMOGLOBIN 12.7 g/dL (11.5-16.0); LYMPHOCYTES # (AUTO) 1.2 10^3/uL (1.0-4.0); LYMPHOCYTES % (AUTO) 17 % (12-44); MEAN CORPUSCULAR HEMOGLOBIN 31 pg (25-34); MEAN CORPUSCULAR HGB CONC 35 g/dL (32-36); MEAN CORPUSCULAR VOLUME 88 fL (80-99); MEAN PLATELET VOLUME 10.4 fL (9.0-12.2); MONOCYTES # (AUTO) 0.5 10^3/uL (0.0-1.0); MONOCYTES % (AUTO) 7 % (0-12); NEUTROPHILS # (AUTO) 5.3 10^3/uL (1.8-7.8); NEUTROPHILS % (AUTO) 76 % (42-75); PLATELET COUNT 196 10^3/uL (130-400)
[2022-07-19] MEDS ORDERED: OXYTOCIN PRE-MIX DRIP 500 ML IV SCH ×2 (10:30→20:45)
[2022-07-19] MEDS ORDERED: fentaNYL 2 mcg/ml BUPIVA 0.125 100 ML ONE (10:34)
[2022-07-19] MEDS: D5 LR IV SOLUTION 1,000 ML IV SCH ×2 (10:43→17:57)
[2022-07-19] MEDS ORDERED: fentaNYL INJ 100 MCG/2 ML AMP ONE (11:29)
[2022-07-19] MEDS ORDERED: BUPIVACAINE 0.25% 30 ML (SENSORCAINE) VIAL ONE (11:29)
[2022-07-19] MEDS ORDERED: CATHETER FLUSH 10 ML SYR IV PRN (12:15)
[2022-07-19] MEDS ORDERED: diphenhydrAMINE 50 MG/ML INJ (BENADRYL) IV PRN (12:15)
[2022-07-19] MEDS ORDERED: NALOXONE 0.4 MG/ML 1 ML (NARCAN) VIAL IV PRN ×2 (12:15→20:45)
[2022-07-19] MEDS ORDERED: LACTATED RINGERS 1,000 ML IV ONE (12:15)
[2022-07-19] MEDS ORDERED: ONDANSETRON 4 MG/2 ML (SDV) Z0FRAN IV PRN (12:15)
[2022-07-19] MEDS ORDERED: fentaNYL 2 mcg/ml BUPIVA 0.125 100 ML IV SCH (12:15)
[2022-07-19] MEDS ORDERED: CATHETER FLUSH 10 ML SYR IV SCH ×2 (14:00→22:00)
[2022-07-19] MEDS ORDERED: LIDOCAINE/EPI 2% 1:200,00 (XYLOCAINE) 10 ML VIAL ONE (20:00)
--- NOTE | 2022-07-19 20:36 | OB Labor & Delivery Record ---
L&D History Date of Service Date of Service: Jul 19, 2022 History Expected Date of Delivery: Aug 05, 2022 Gestational Age in Weeks: 37 Hx : 3 Hx Para: 2 Complications Events: Oliohydramnios, Routine care Operative Indications (Cesarea: N/A-Vaginal Delivery Intrapartal Events: None L&D Stage1 Stage One Onset of Labor - Date: Jul 19, 2022 Monitors and Tracing Monitor Mode: External Heart Rate: 135 Monitor Accelerations: Uniform Monitor Decelerations: Variable Station: 0 Mcfp Variability: Average (6-10) Short Term Variability: Present Presentation: Vertex Vital Signs VS - Last 72 Hours, by Label 07/19/22 07/19/22 07/19/22 07/19/22 09:15 10:50 11:05 11:20 Temp 36.7 Pulse 101 87 88 90 Resp 18 18 18 18 B/P (MAP) 127/87 (100) 131/75 (93) 135/80 (98) Pulse Ox 100 O2 Delivery Room Air 07/19/22 07/19/22 07/19/22 07/19/22 11:48 11:51 11:55 12:00 Temp 36.7 Pulse 76 77 70 66 Resp 18 18 18 18 B/P (MAP) 118/83 (95) 121/78 (92) 131/78 (95) 119/76 (90) Pulse Ox 98 98 97 96 O2 Delivery Room Air Room Air Room Air Room Air 07/19/22 07/19/22 07/19/22 07/19/22 12:03 12:06 12:09 12:12 Pulse 79 81 63 86 Resp 18 18 18 18 B/P (MAP) 119/79 (92) 121/79 (93) 122/82 (95) 126/78 (94) Pulse Ox 96 97 98 O2 Delivery Room Air Room Air Room Air Room Air 07/19/22 07/19/22 07/19/22 07/19/22 12:15 12:18 12:21 12:24 Pulse 74 61 72 60 Resp 18 18 18 18 B/P (MAP) 123/76 (92) 121/75 (90) 123/74 (90) 123/74 (90) Pulse Ox 98 98 98 98 O2 Delivery Room Air Room Air Room Air Room Air 8/07/19/22 07/19/22 07/19/22 12:27 12:30 12:35 12:40 Pulse 62 74 67 81 Resp 18 18 18 18 B/P (MAP) 115/72 (86) 129/87 (101) 120/74 (89) 122/73 (89) Pulse Ox 98 97 98 97 O2 Delivery Room Air Room Air Room Air Room Air 07/19/22 07/19/22 07/19/22 07/19/22 12:45 13:05 13:20 13:40 Pulse 76 71 68 60 Resp 18 18 18 18 B/P (MAP) 118/73 (88) 122/80 (94) 121/76 (91) 112/72 (85) Pulse Ox 97 97 98 98 O2 Delivery Room Air Room Air Room Air Room Air 07/19/22 07/19/22 07/19/22 07/19/22 13:55 14:05 14:20 14:35 Pulse 63 67 61 62 Resp 18 18 18 18 B/P (MAP) 114/72 (86) 117/75 (89) 111/73 (86) 118/72 (87) Pulse Ox 97 97 O2 Delivery Room Air Room Air Room Air Room Air 07/19/22 07/19/22 07/19/22 07/19/22 14:50 15:10 15:25 15:40 Temp 36.7 Pulse 85 82 59 61 Resp 18 18 18 18 B/P (MAP) 120/69 (86) 117/78 (91) 106/72 (83) 116/70 (85) O2 Delivery Room Air Room Air Room Air Room Air 07/19/22 07/19/22 07/19/22 07/19/22 15:55 16:10 16:25 16:40 Pulse 66 64 60 68 Resp 18 18 18 18 B/P (MAP) 117/78 (91) 116/72 (87) 123/73 (90) 110/75 (87) O2 Delivery Room Air Room Air Room Air Room Air 07/19/22 07/19/22 07/19/22 07/19/22 16:55 17:10 17:25 17:40 Temp 36.8 Pulse 60 64 69 68 Resp 18 18 18 18 B/P (MAP) 118/79 (92) 125/82 (96) 131/84 (100) 129/82 (98) O2 Delivery Room Air Room Air Room Air Room Air 07/19/22 07/19/22 07/19/22 07/19/22 17:55 18:10 18:25 18:40 Pulse 71 75 84 Resp 18 18 18 B/P (MAP) 121/80 (94) 122/79 (93) 134/66 (88) 136/78 (97) O2 Delivery Room Air Room Air Room Air Room Air 07/19/22 18:55 Pulse 78 Resp 18 B/P (MAP) 130/84 (99) O2 Delivery Room Air Rupture of Membranes Spontaneous Ruture of Membrane: Yes Amniotic Membrane Rupture Time: 1015 Amniotic Membrane Fluid Desc.: Clear Vaginal Bleeding Description: Normal Show Induction/Anesthesia Epidural Cath Placement - Time: 1144 Progress/Notes Patient admitted for IOL due to oligo and suspected IUGR <10%tile. AROM performed, and pitocin augmentation started. She received an epidural and progressed to complete and + 2 station. L&D Stage2 Stage Two Stage II Date: Jul 19, 2022 Monitors and Tracing Monitor Mode: External Heart Rate: 135 Monitor Accelerations: Uniform Monitor Decelerations: Variable Shoe Sticks Repairer Variability: Average (6-10) Short Term Variability: Present Position: Right Occiput Anterior Presentation: Vertex Cord Descript/Complications Cord Vessel Description: 3 Vessels Delivery Type Infant Delivery Method: Spontaneous Vaginal Anterior Shoulder: Left Episiotomy/Perineal Laceration Laceraction(s)/Extensions: Yes Episiotomy Description: Perineal Extension/lac, 1st degree Degree (describe repair) laceration repaired using 3-0 rapide in usual fashion Condition of Delivery 1 minute Comment: 8 5 minute Comment: 9 Notes Live female weight pending. Condition of Infant Condition of Infant: Living Exam: No Observed Abnormalities Resuscitation Resuscitation: N/A - Spontaneous Resp L&D Stage3 Stage Three Stage III Date: Jul 19, 2022 Pictocin Pitocin Administration mu/min: 10 Pitocin ml/hr: 10 Pitocin Administration Comment: 30 mu wide open after delivery of placenta Placenta Delivery Placenta Delivery: Spontaneous Delivery Summary Summary Estimated blood loss (mL): 300 Attending at delivery: Jey Dunn DO Condition of Delivery Examined: Cervix Examined, Uterus Explored Post Hemorrhage: No Condition of Mother stable Condition of Infant (s) stable JEY DUNN DO Jul 19, 2022 20:36
--- NOTE | 2022-07-19 20:37 | Discharge Inst-Women's Service ---
Discharge Inst-Women's Serv Depart Medication/Instructions New, Converted or Re-Newed RX: Transmitted to Pharmacy Final Diagnosis PPD 2 NVD Problems Reviewed?: Yes Consults/Follow Up Additional Follow Up: Yes Orders/Referrals Dr. Dunn in 6 weeks Activity Activity: Activity as Tolerated Driving Instructions: No Driving for 1 Week NO SMOKING: NO SMOKING Nothing Inside Vagina: No Douching, No [place], No Tampons Diet Discharge Diet: No Restrictions Symptoms to Report to : Bleeding Excessive, Pain Increased, Fever Over 101 Degrees F, Vaginal Bleeding Increase, Questions/Concerns For Any Problems or Questions: Contact Your Physician JEY DUNN DO Jul 19, 2022 20:37
[2022-07-19] MEDS ORDERED: DOCU100C37 PO (20:39)
[2022-07-19] MEDS ORDERED: DIBU30OI TOP (20:39)
[2022-07-19] MEDS ORDERED: BENZ78AE5 TP (20:39)
[2022-07-19] MEDS ORDERED: ACHD5005 PO (20:39)
[2022-07-19] MEDS ORDERED: IBUP-844 PO (20:39)
[2022-07-19] MEDS ORDERED: HYDROcodone/APAP 5 MG/325 MG (LORTAB) TAB PO PRN (20:45)
[2022-07-19] MEDS ORDERED: BENZOCAINE/MENTHOL (DERMOPLAST) 56 ML CAN TP PRN (20:45)
[2022-07-19] MEDS ORDERED: TETANUS,DIPTH,PERTUSS P/F (BOOSTRIX) 0.5 ML VIAL IM ONE (20:45)
[2022-07-19] MEDS ORDERED: DIBUCAINE 1% OINTMENT 30 GM TUBE TOP PRN (20:45)
[2022-07-19] MEDS ORDERED: MEASLES,MUMPS,RUBELLA 1 EA INJ SQ ONE (20:45)
[2022-07-19] MEDS ORDERED: WITCH HAZEL(TUCKS) 40 EA JAR TOP PRN (20:45)
[2022-07-19] MEDS: DOCUSATE SODIUM 100 MG (COLACE) CAP PO SCH (21:00)
[2022-07-20] VITALS: BP 118/79
[2022-07-20] MEDS: IBUPROFEN 600 MG (MOTRIN) TAB PO SCH ×4 (01:19→20:37)
[2022-07-20 03:30] VITALS: BP 111/75
[2022-07-20 06:07] LABS: BASOPHILS % (AUTO) 0 % (0-10); EOSINOPHILS # (AUTO) 0.1 10^3/uL (0.0-0.3); EOSINOPHILS % (AUTO) 1 % (0-10); HEMATOCRIT 34 % (35-52); HEMOGLOBIN 11.7 g/dL (11.5-16.0); LYMPHOCYTES # (AUTO) 1.4 10^3/uL (1.0-4.0); LYMPHOCYTES % (AUTO) 13 % (12-44); MEAN CORPUSCULAR HEMOGLOBIN 31 pg (25-34); MEAN CORPUSCULAR HGB CONC 35 g/dL (32-36); MEAN CORPUSCULAR VOLUME 89 fL (80-99); MEAN PLATELET VOLUME 10.6 fL (9.0-12.2); MONOCYTES # (AUTO) 0.6 10^3/uL (0.0-1.0); MONOCYTES % (AUTO) 6 % (0-12); NEUTROPHILS # (AUTO) 8.6 10^3/uL (1.8-7.8); NEUTROPHILS % (AUTO) 80 % (42-75); PLATELET COUNT 157 10^3/uL (130-400); WHITE BLOOD COUNT 10.8 10^3/uL (4.3-11.0)
[2022-07-20] MEDS ORDERED: PRENATAL VITAMIN 1 EA TAB PO SCH (07:00)
--- NOTE | 2022-07-20 07:58 | Anesthesia-Regional Post-Op ---
Regional Patient Condition Mental Status: Alert, Oriented x3 Circulation: Same as Pre-Op Headache: Absent Sensation: Full Recovery Motor Block: Absent Post Op Complications Complications None Follow Up Care/Instructions Patient Instructions None needed. Anesthesia/Patient Condition Patient is doing well, no complaints, stable vital signs, no apparent adverse anesthesia problems. No complications reported per nursing. D/C home per [facility] Criteria: Yes JAMAL LEY CRNA Jul 20, 2022 07:58
[2022-07-20 08:15] VITALS: BP 126/69
[2022-07-20] MEDS: DOCUSATE SODIUM 100 MG (COLACE) CAP PO SCH ×2 (08:32→20:37)
[2022-07-20] MEDS ORDERED: FERROUS SULF 325 MG (IRON) TAB PO SCH (09:00)
--- NOTE | 2022-07-20 10:34 | Postpartum Progress Note ---
Note Note Day # 1 Subjective: Patient is without complaints. Ambulating, voiding. Tolerating a regular diet without nausea or vomiting. Normal lochia. Pain is well controlled with oral pain medications. Physical Exam: General - Alert and oriented, no apparent distress Abdomen - Soft, appropriately tender to palpation, non-distended, fundus firm at umbilicus Extremities - no edema, negative Dereje's bilaterally Assessment: Post- day # 1, status post vaginal delivery. Recovering well, hemodynamically stable Acute blood loss anemia Plan: Routine care. Encourage breast feeding. Encourage ambulation. Ferrous sulfate supplementation. Plan for discharge this evening or tomorrow morning pending baby's discharge Vitals - Labs Vital Signs - I&O Vital Signs Date Time Temp Pulse Resp B/P (MAP) Pulse Ox O2 Delivery O2 Flow Rate FiO2 07/20/22 03:30 37.3 65 18 111/75 (87) Room Air 07/20/22 00:00 36.9 74 16 118/79 (92) Room Air 07/19/22 21:45 37.1 77 18 123/83 (96) Room Air 07/19/22 20:55 76 18 119/72 (88) Room Air 07/19/22 20:09 37.0 80 18 121/73 (89) Room Air 07/19/22 19:55 88 18 125/79 (94) Room Air 07/19/22 19:40 90 18 132/81 (98) Room Air 07/19/22 19:25 85 18 119/75 (90) Room Air 07/19/22 19:10 75 18 128/85 (99) Room Air 07/19/22 18:55 78 18 130/84 (99) Room Air 07/19/22 18:40 136/78 (97) Room Air 07/19/22 18:25 84 18 134/66 (88) Room Air 07/19/22 18:10 75 18 122/79 (93) Room Air 07/19/22 17:55 71 18 121/80 (94) Room Air 07/19/22 17:40 68 18 129/82 (98) Room Air 07/19/22 17:25 36.8 69 18 131/84 (100) Room Air 07/19/22 17:10 64 18 125/82 (96) Room Air 07/19/22 16:55 60 18 118/79 (92) Room Air 07/19/22 16:40 68 18 110/75 (87) Room Air 07/19/22 16:25 60 18 123/73 (90) Room Air 07/19/22 16:10 64 18 116/72 (87) Room Air 07/19/22 15:55 66 18 117/78 (91) Room Air 07/19/22 15:40 61 18 116/70 (85) Room Air 07/19/22 15:25 59 18 106/72 (83) Room Air 07/19/22 15:10 82 18 117/78 (91) Room Air 07/19/22 14:50 36.7 85 18 120/69 (86) Room Air 07/19/22 14:35 62 18 118/72 (87) Room Air 07/19/22 14:20 61 18 111/73 (86) Room Air 07/19/22 14:05 67 18 117/75 (89) 97 Room Air 07/19/22 13:55 63 18 114/72 (86) 97 Room Air 07/19/22 13:40 60 18 112/72 (85) 98 Room Air 07/19/22 13:20 68 18 121/76 (91) 98 Room Air 07/19/22 13:05 71 18 122/80 (94) 97 Room Air 07/19/22 12:45 76 18 118/73 (88) 97 Room Air 07/19/22 12:40 81 18 122/73 (89) 97 Room Air 07/19/22 12:35 67 18 120/74 (89) 98 Room Air 07/19/22 12:30 74 18 129/87 (101) 97 Room Air 07/19/22 12:27 62 18 115/72 (86) 98 Room Air 07/19/22 12:24 60 18 123/74 (90) 98 Room Air 07/19/22 12:21 72 18 123/74 (90) 98 Room Air 07/19/22 12:18 61 18 121/75 (90) 98 Room Air 07/19/22 12:15 74 18 123/76 (92) 98 Room Air 07/19/22 12:12 86 18 126/78 (94) 98 Room Air 07/19/22 12:09 63 18 122/82 (95) Room Air 07/19/22 12:06 81 18 121/79 (93) 97 Room Air 07/19/22 12:03 79 18 119/79 (92) 96 Room Air 07/19/22 12:00 36.7 66 18 119/76 (90) 96 Room Air 07/19/22 11:55 70 18 131/78 (95) 97 Room Air 07/19/22 11:51 77 18 121/78 (92) 98 Room Air 07/19/22 11:48 76 18 118/83 (95) 98 Room Air 07/19/22 11:20 90 18 135/80 (98) 07/19/22 11:05 88 18 131/75 (93) 07/19/22 10:50 87 18 127/87 (100) I & O 07/20/22 07:00 Intake Total 3600 ml Balance 3600 ml Labs Laboratory Tests 07/20/22 05:41: White Blood Count 10.8, Red Blood Count 3.77L, Hemoglobin 11.7, Hematocrit 34L, Mean Corpuscular Volume 89, Mean Corpuscular Hemoglobin 31, Mean Corpuscular Hemoglobin Concent 35, Red Cell Distribution Width 12.8, Platelet Count 157, Mean Platelet Volume 10.6, Immature Granulocyte % (Auto) 0, Neutrophils (%) (Auto) 80H, Lymphocytes (%) (Auto) 13, Monocytes (%) (Auto) 6, Eosinophils (%) (Auto) 1, Basophils (%) (Auto) 0, Neutrophils # (Auto) 8.6H, Lymphocytes # (Auto) 1.4, Monocytes # (Auto) 0.6, Eosinophils # (Auto) 0.1, Basophils # (Auto) 0.0, Immature Granulocyte # (Auto) 0.0 ANDREA OCHOA APRN Jul 20, 2022 10:34
[2022-07-20 12:00] VITALS: BP 118/74
[2022-07-20] MEDS ORDERED: BISACODYL 5 MG (DULCOLAX) TABLET PO NR (15:15)
[2022-07-20] MEDS ORDERED: BISACODYL 10 MG SUPP (DULCOLAX) PR PRN (15:15)
[2022-07-20 17:15] VITALS: BP 140/78
[2022-07-20 22:00] VITALS: BP 123/68
== END 2022-07-20 22:00 | disposition home or self-care (01) | DRG 806 ==
LOC: LDRP 09:12
PROVIDERS: ADMIT Obstetrics & Gynecology; ATTEND Obstetrics & Gynecology
PROC: 10E0XZZ Delivery of Products of Conception, External Approach (ICD-10-PCS; principal; 2022-07-19)
PROC: 0HQ9XZZ Repair Perineum Skin, External Approach (ICD-10-PCS; 2022-07-19)
PROC: 0W8NXZZ Division of Female Perineum, External Approach (ICD-10-PCS; 2022-07-19)
PROC: 10907ZC Drainage of Amniotic Fluid, Therapeutic from Products of Conception, Via Natural or Artificial Opening (ICD-10-PCS; 2022-07-19)
DX: O41.03X0 Oligohydramnios, third trimester, not applicable or unspecified (principal); D62 Acute posthemorrhagic anemia; Z37.0 Single live birth; Z3A.37 37 weeks gestation of pregnancy; O70.0 First degree perineal laceration during delivery; O36.5930 Maternal care for other known or suspected poor fetal growth, third trimester, not applicable or unspecified; Z88.2 Allergy status to sulfonamides; O90.81 Anemia of the puerperium; Z28.310 Unvaccinated for COVID-19
CPT/HCPCS: 36415; 85025; 86850; 86900; 86901